=== PATIENT | male | born 1990 | race Asian ===

== ENCOUNTER 2016-11-23 21:32 | Emergency (ER) | payer OTHER ==
[2016-11-23] MEDS ORDERED: diphenhydrAMINE 25 MG CAP PO ONE (22:21)
[2016-11-23] MEDS ORDERED: FAMOTIDINE 20 MG TAB PO ONE (22:21)
--- NOTE | 2016-11-23 22:21 | EDPHY ---
H & P Stated Complaint: N/V after shrimp ingestion Time Seen by Provider: 11/23/16 22:00 HPI/ROS: CHIEF COMPLAINT: Allergic reaction HISTORY OF PRESENT ILLNESS: This is a 26-year-old male presenting to the emergency department complaining of allergic reaction to shrimp. Patient states he ate shrimp for the 1st time 3 hours ago started itching and scratching 1 hour after eating shrimp. Several episodes of vomiting with nausea , no shortness of breath or chest pain. REVIEW OF SYSTEMS: Constitutional: No fever, no chills. Eyes: No visual changes. ENT: No sore throat Respiratory: No cough, no shortness of breath. Cardiac: No chest pain. Gastrointestinal: No abdominal pain, complaining of nausea with 4 episodes of vomiting Musculoskeletal: No back pain. Skin: Rash to upper extremities and torso Neurological: No headache. Source: Patient, Family - Personal History Current Tetanus/Diphtheria Vaccine: No - Medical/Surgical History Hx Asthma: No Hx Chronic Respiratory Disease: No Hx Diabetes: No Hx Cardiac Disease: No Hx Renal Disease: No Hx Cirrhosis: No Hx Alcoholism: No Hx HIV/AIDS: No Hx Splenectomy or Spleen Trauma: No Other PMH: PSHx: denies. PMHx: denies - Social History Smoking Status: Never smoked - Physical Exam Exam: General Appearance: Alert, no distress. Eyes: Pupils equal and round no pallor or injection. ENT, Mouth: Mucous membranes moist. No angioedema Respiratory: There are no retractions, lungs are clear to auscultation. No wheezing noted Cardiovascular: Regular rate and rhythm. Gastrointestinal: Abdomen is soft and nontender, no masses, bowel sounds normal. Neurological: No focal deficits Skin: Warm and dry, Uticaria bilateral upper extremities and torso Musculoskeletal: Neck is supple nontender. Extremities: symmetrical, full range of motion. Psychiatric: Patient is oriented X 3, there is no agitation. Constitutional: Initial Vital Signs Heart Rate 84 11/23/16 21:35 Respiratory Rate 17 11/23/16 21:35 Blood Pressure 122/74 H 11/23/16 21:35 O2 Sat (%) 100 11/23/16 21:35 O2 Delivery Mode Room Air Allergies/Adverse Reactions: No Known Allergies Allergy (Unverified 11/23/16 21:34) Home Medications: Medication Instructions Recorded predniSONE [Deltasone] 20 mg PO BID #10 tablet 11/23/16 Medical Decision Making ED Course/Re-evaluation: Discussed the plan of care: Benadryl, famotidine PO. Solu-Medrol 125mg IM x1 2330: Patient re-evaluation nonlabored respiratory effort, no wheezing patient states feeling better does not itch. Decreased in uticaria. Discussed discharge instructions with patient Differential Diagnosis: Differential diagnosis considered but not limited to anaphylaxis, angioedema and allergic contact dermatitis - Data Points Medications Given: Discontinued Medications Diphenhydramine HCl (Benadryl) 50 mg PO EDNOW ONE Stop: 11/23/16 22:22 Last Admin: 11/23/16 22:42 Dose: 50 mg Famotidine (Pepcid) 40 mg PO EDNOW ONE Stop: 11/23/16 22:22 Last Admin: 11/23/16 22:42 Dose: 40 mg Methylprednisolone Sodium Succinate (Solu-Medrol) 125 mg IM EDNOW ONE Stop: 11/23/16 22:23 Last Admin: 11/23/16 22:42 Dose: 125 mg Departure - Departure Disposition: Home, Routine, Self-Care Clinical Impression: Allergic reaction to food Qualifiers: Encounter type: initial encounter Qualified Code(s): T78.1XXA - Other adverse food reactions, not elsewhere classified, initial encounter Condition: Good Instructions: Urticaria (ED), Food Allergy (ED), Allergies (ED), General Allergic Reaction (ED) Additional Instructions: Discussed discharge instructions 1. Continue taking Benadryl by mouth 25 mg-50mg every 6-8 hours as needed for itching 2. Take Pepcid 40 mg daily by mouth for the next 5 days this will also bring down the histamine level 3. I have given you a prescription for prednisone 40 mg daily for the next 5 days 4. Do not eat any shellfish such as shrimp 5. If you become short of breath, wheezing, or any facial swelling return to the emergency department immediately Referrals: NONE *PRIMARY CARE P,. [Primary Care Provider] - As per Instructions [facility],. [Clinic] - As per Instructions [facility] [Clinic] - As per Instructions Prescriptions: predniSONE [Deltasone] 20 mg PO BID #10 tablet
[2016-11-23] MEDS ORDERED: methylPREDNISolone SOD SUCC 125 MG/2 ML VIAL IM ONE (22:22)
[2016-11-23 23:37] VITALS: BP 130/86; PULSE 71; RESP 16; TEMP 98.4; O2SAT 97
== END 2016-11-23 23:43 | disposition home or self-care (01) ==
DX: T78.1XXA Other adverse food reactions, not elsewhere classified, initial encounter (principal); Z91.013 Allergy to seafood